=== PATIENT | female | born 1930 | race Caucasian/White ===

== ENCOUNTER 2017-03-15 19:23 | Emergency (ER) | payer MEDICARE ==
--- NOTE | 2017-03-15 19:44 | Emergency Department Record ---
History of Present Illness - General Chief complaint: Rash Stated complaint: REDNESS ON BOTH LEGS Time Seen by Provider: 03/15/17 19:41 Source: Patient, Family Mode of Arrival: Ambulatory Limitations: No limitations - History of Present Illness Initial comments: 86 yo female presents with redness, scabs, swelling to the bilateral lower legs. No fevers. She has some small abrasions from gardening that have become red with some clear drainage. No fevers. No NVD. No chills. She has mild bilateral swelling as well. No shortness of breath. NO pain. No other recent illness. PCP Jose HIDALGO complaint: Rash Hx Tetanus Toxoid Vaccination: Yes Year of Tetanus Vaccination: 2006 Location: LLE, RLE Severity: Mild Quality: Other (no pain) Worsens with: None Context: Other (initial scratches) Associated symptoms: Denies other symptoms Treatments Prior to Arrival: None - Related Data Home Medications Medication Instructions Recorded Confirmed Last Taken Amlodipine Besylate 2.5 mg PO DAILY 09/03/15 03/15/17 03/15/17 Carvedilol [Coreg] 25 mg PO BID 09/03/15 03/15/17 03/15/17 Escitalopram Oxalate [Lexapro] 10 mg PO DAILY 09/03/15 03/15/17 03/15/17 Furosemide [Lasix] 20 mg PO BID 09/03/15 03/15/17 03/15/17 Quinapril HCl 40 mg PO DAILY 09/03/15 03/15/17 03/15/17 Calcium Carbonate/Vitamin D3 1 each PO DAILY 12/24/15 03/15/17 03/15/17 [Caltrate 600 + D Tablet] Multivitamin [Multi-Vitamin Daily] 1 each PO DAILY 12/24/15 03/15/17 12/24/15 Previous Rx's Medication Instructions Recorded Clindamycin HCl 300 mg PO QID #28 capsule 03/15/17 Mupirocin Calcium [Bactroban] 15 gm TP BID #1 cream..g. 03/15/17 Potassium Chloride [Klor-Con] 10 meq PO DAILY #4 tablet.sa 03/15/17 Allergies Allergy/AdvReac Type Severity Reaction Status Date / Time No Known Drug Allergies Allergy Unknown Verified 03/15/17 19:34 [NO KNOWN DRUG ALLERGIES] Review of Systems Constitutional: Denies: Chills, Fever, Malaise, Weakness Eyes: Denies: Eye discharge ENT: Denies: Congestion, Throat pain Respiratory: Denies: Cough Cardiovascular: Denies: Chest pain, Syncope Endocrine: Denies: Fatigue Gastrointestinal: Denies: Abdominal pain, Diarrhea, Nausea, Vomiting Genitourinary: Denies: Dysuria, Urgency Musculoskeletal: Denies: Arthralgia, Back pain, Myalgia Skin: Reports: As per HPI, Change in color Neurological: Denies: Confusion, Headache Psychiatric: Denies: Anxiety Hematological/Lymphatic: Denies: Blood Clots, Easy bleeding, Easy bruising, Swollen glands Past Medical History - SOCIAL HISTORY Smoking Status: Never smoker - RESPIRATORY Hx Respiratory Disorders: No - CARDIOVASCULAR Hx Cardio Disorders: Yes Hx CHF: Yes - NEURO Hx Neuro Disorders: No - GI Hx GI Disorders: Yes Comment:: C-Diff - Hx Genitourinary Disorders: No - ENDOCRINE Hx Endocrine Disorders: No - MUSCULOSKELETAL Hx Musculoskeletal Disorders: No - PSYCH Hx Psych Problems: No - HEMATOLOGY/ONCOLOGY Hx Hematology/Oncology Disorders: No Family Medical History Hx Cancer: Mother Hx Heart Disease: Father, Mother Physical Exam - General General Appearance: Alert, Oriented x3, Cooperative, No acute distress Limitations: No limitations - Head Head exam: Normal inspection - Eye Eye exam: Normal appearance - ENT ENT exam: Normal exam Ear exam: Normal external inspection Nasal Exam: Normal inspection Mouth exam: Normal external inspection - Neck Neck exam: Normal inspection - Respiratory Respiratory exam: Normal lung sounds bilaterally. negative: Respiratory distress - Cardiovascular Cardiovascular Exam: Regular rate, Normal rhythm, Normal heart sounds - Rectal Rectal exam: Deferred - exam: Deferred - Extremities Extremities exam: Full ROM, Normal capillary refill, Pedal edema (mild +1), Other (few scattered scabs bilaterally, minimal clear draiange, mild erythema bilateral shins). negative: Normal inspection, Calf tenderness, Joint swelling , Tenderness - Back Back exam: Reports: Normal inspection - Neurological Neurological exam: Alert, Normal gait, Oriented X3 - Psychiatric Psychiatric exam: Normal affect, Normal mood - Skin Skin exam: Dry, Intact, Normal color, Warm Course Vital Signs 03/15/17 19:35 Temperature 97.7 F Pulse Rate [ 67 Pulse Ox Probe] Respiratory 18 Rate Blood Pressure 171/84 [Left Arm] Pulse Ox 95 Disposition Disposition: Discharge Clinical Impression: Cellulitis Qualifiers: Site of cellulitis: extremity Site of cellulitis of extremity: lower extremity Laterality: unspecified laterality Qualified Code(s): L03.119 - Cellulitis of unspecified part of limb Disposition: Home, Self-Care Condition: (1) Good Instructions: Cellulitis (ED) Additional Instructions: Elevate the legs Wear your support hose Take your Lasix once every twelve hours (twice daily) Saturday and Saturday Clindamycin 4 times daily Apply the ointment twice daily to the scabbed areas Prescriptions: Clindamycin HCl 300 mg PO QID #28 capsule Mupirocin Calcium [Bactroban] 15 gm TP BID #1 cream..g. Potassium Chloride [Klor-Con] 10 meq PO DAILY #4 tablet.sa Forms: Patient Portal Access Time of Disposition: 19:57 Quality - Quality Measures Quality Measures: N/A - Blood Pressure Screening Does Patient Have Any of the Following: No Blood Pressure Classification: Pre-Hypertensive BP Reading Systolic Measurement: 171 Diastolic Measurement: 84 Screening for High Blood Pressure: < Pre-Hypertensive BP, F/U Documented > [ G8950] Pre-Hypertensive Follow-up Interventions: Referral to alternative/primary care provider.
[2017-03-15] MEDS ORDERED: CLINDAMYCIN 150 MG CAP PO ONE (19:53)
[2017-03-15] MEDS ORDERED: MUPIROCIN OINT 22 GM TUBE TOP SCH (20:00)
== END 2017-03-15 20:26 | disposition home or self-care (01) ==
LOC: ER 19:23
DX: L03.116 Cellulitis of left lower limb (principal); L03.115 Cellulitis of right lower limb
CPT/HCPCS: 99282

== ENCOUNTER 2018-03-18 15:49 | Emergency (ER) | payer MEDICARE ==
[2018-03-18] MEDS ORDERED: RABIES IMMUNE GLOBULIN/PF 150 UNIT/ML, 10ML VIAL IM ONE (16:11)
[2018-03-18] MEDS ORDERED: RABIES VACCINE 2.5 IU VIAL IM ONE (16:11)
--- NOTE | 2018-03-18 16:22 | Emergency Department Record ---
History of Present Illness - General Chief Complaint: Animal Bite Stated Complaint: POSSIBLE BAT BITE Time Seen by Provider: 03/18/18 16:02 Source: Patient Mode of Arrival: Ambulatory Limitations: No limitations - History of Present Illness Initial Comments: Pt with recetn bat infestation of her home. Multiple bats in the living areas of her home over the past two weeks. Has had pest control to the home to resolve the issue. Had contact with the bats while "hitting them off the curtains with a broom". Her cat also killed one and the patient rolled it in a rug to take out of the house. No direct skin to skin contact know by patient. No symptoms. Health department instructed the patient to have the rabies series. Complaint: Possible animal exposure -: Unknown Animal: Bat Description: Wild animal Mechanism: None known Context: Other Associated Symptoms: None - Related Data Allergies Allergy/AdvReac Type Severity Reaction Status Date / Time No Known Drug Allergies Allergy Unknown Unverified 09/24/17 16:59 [NO KNOWN DRUG ALLERGIES] Travel Screening - Travel/Exposure Within Last 30 Days Have you traveled within the last 30 days?: No Review of Systems Constitutional: Denies: Chills, Fever, Weakness Eyes: Denies: Eye pain, Photophobia, Vision change ENT: Denies: Congestion Respiratory: Denies: Cough, Dyspnea Cardiovascular: Denies: Arrhythmia, Chest pain Endocrine: Denies: Fatigue Gastrointestinal: Denies: Abdominal pain Musculoskeletal: Denies: Arthralgia Skin: Denies: Rash Neurological: Denies: Confusion, Headache, Seizure, Tingling Psychiatric: Denies: Anxiety Hematological/Lymphatic: Denies: Anemia Past Medical History - SOCIAL HISTORY Smoking Status: Never smoker - RESPIRATORY Hx Respiratory Disorders: No - CARDIOVASCULAR Hx Cardio Disorders: Yes Hx CHF: Yes - NEURO Hx Neuro Disorders: No - GI Hx GI Disorders: Yes Comment:: C-Diff - Hx Genitourinary Disorders: No - ENDOCRINE Hx Endocrine Disorders: No - MUSCULOSKELETAL Hx Musculoskeletal Disorders: No - PSYCH Hx Psych Problems: No Hx Anxiety: Yes Hx Depression: Yes - HEMATOLOGY/ONCOLOGY Hx Hematology/Oncology Disorders: No Hx Anemia: Yes Family Medical History Any Significant Family History?: Yes Hx Cancer: Mother Hx Heart Disease: Father, Mother Physical Exam - General General Appearance: Alert, Oriented x3, Cooperative, No acute distress - Head Head exam: Atraumatic - Eye Eye exam: Normal appearance, PERRL - ENT ENT exam: Normal exam, Mucous membranes moist, Normal external ear exam, Normal orophraynx - Neck Neck exam: Normal inspection, Full ROM - Respiratory Respiratory exam: Normal lung sounds bilaterally. negative: Rhonchi, Wheezes - Cardiovascular Cardiovascular Exam: Regular rate, Normal rhythm, Normal heart sounds - GI/Abdominal GI/Abdominal exam: Soft, Normal bowel sounds. negative: Tenderness - Extremities Extremities exam: Normal inspection, Full ROM - Back Back exam: Reports: Normal inspection. Denies: Paraspinal tenderness - Neurological Neurological exam: Alert, Normal gait, Oriented X3 - Psychiatric Psychiatric exam: Normal affect - Skin Skin exam: Normal color. negative: Rash Course Vital Signs 03/18/18 03/18/18 16:01 16:02 Temperature 97.9 F Pulse Rate [ 70 Pulse Ox Probe] Respiratory 20 Rate Blood Pressure 174/84 [Left Arm] Pulse Ox 95 - Reevaluation(s) Reevaluation #1: 03/18/18 16:23 Pt given Rabies injections for Day 0 in ED today. Series to continue here on Day 3, 7, 14. Pt aware. Disposition Disposition: Discharge Clinical Impression: Exposure to bat without known bite Disposition: Home, Self-Care Condition: (1) Good Additional Instructions: Rabies injection series here in the ER on Days: Day #3: 03-21-18 Day #7: 03-25-18 Day #14: 04-01-18 Return at any time if issues or concerns. Time of Disposition: 16:27 Quality - Quality Measures Quality Measures: N/A - Blood Pressure Screening Does Patient Have Any of the Following: No Blood Pressure Classification: Pre-Hypertensive BP Reading Systolic Measurement: 174 Diastolic Measurement: 84 Screening for High Blood Pressure: < Pre-Hypertensive BP, F/U Documented > [ G8950] Pre-Hypertensive Follow-up Interventions: Follow-up with rescreen every year.
== END 2018-03-18 16:45 | disposition home or self-care (01) ==
LOC: ER 15:49
DX: Z20.3 Contact with and (suspected) exposure to rabies (principal); I50.9 Heart failure, unspecified
CPT/HCPCS: 90375; 90675; 96372; 99282; 99283

== ENCOUNTER 2018-03-21 10:34 | Emergency (ER) | payer MEDICARE ==
[2018-03-21] MEDS ORDERED: RABIES VACCINE 2.5 IU VIAL IM ONE (10:55)
--- NOTE | 2018-03-21 11:01 | Emergency Department Record ---
History of Present Illness - General Chief Complaint: Recheck - Other Stated Complaint: RABIE SHOT Time Seen by Provider: 03/21/18 10:49 Source: Patient Mode of arrival: Ambulatory Limitations: No limitations - History of Present Illness Initial Comments: pt here for 2nd shot after bat exposure. bats have been cleared from the house Complaint: Other Onset/Timin -: Week(s) Initial Visit For: Other Returns Today for: Rabies shot Symptoms Since Prior Visit: No new symptoms Associated Symptoms: None - Related Data Allergies Allergy/AdvReac Type Severity Reaction Status Date / Time No Known Drug Allergies Allergy Unknown Unverified 09/24/17 16:59 [NO KNOWN DRUG ALLERGIES] Travel Screening - Travel/Exposure Within Last 30 Days Have you traveled within the last 30 days?: No Review of Systems Reviewed: No additional complaints except as noted below Constitutional: Reports: As per HPI. Denies: Chills, Fever, Malaise, Night sweats, Weakness, Weight change Eyes: Reports: As per HPI. Denies: Eye discharge, Eye pain, Photophobia, Vision change ENT: Reports: As per HPI. Denies: Congestion, Dental pain, Ear pain, Epistaxis , Hearing loss, Throat pain Respiratory: Reports: As per HPI. Denies: Cough, Dyspnea, Hemoptysis, Stridor, Wheezes Cardiovascular: Reports: As per HPI. Denies: Arrhythmia, Chest pain, Dyspnea on exertion, Edema, Murmurs, Orthopnea, Palpitations, Paroxysmal nocturnal dyspnea, Rheumatic Fever, Syncope Endocrine: Reports: As per HPI. Denies: Fatigue, Heat or cold intolerance, Polydipsia, Polyuria Gastrointestinal: Reports: As per HPI. Denies: Abdominal pain, Constipation, Diarrhea, Hematemesis, Hematochezia, Melena, Nausea, Vomiting Genitourinary: Reports: As per HPI. Denies: Abnormal menses, Discharge, Dyspareunia, Dysuria, Frequency, Hematuria, Incontinence, Retention, Urgency Musculoskeletal: Reports: As per HPI. Denies: Arthralgia, Back pain, Gout, Joint swelling, Myalgia, Neck pain Skin: Reports: As per HPI. Denies: Bruising, Change in color, Change in hair/ nails, Lesions, Pruritus, Rash Neurological: Reports: As per HPI. Denies: Abnormal gait, Confusion, Headache, Numbness, Paresthesias, Seizure, Tingling, Tremors, Vertigo, Weakness Psychiatric: Reports: As per HPI. Denies: Anxiety, Auditory hallucinations, Depression, Homicidal thoughts, Suicidal thoughts, Visual hallucinations Hematological/Lymphatic: Reports: As per HPI. Denies: Anemia, Blood Clots, Easy bleeding, Easy bruising, Swollen glands Past Medical History - SOCIAL HISTORY Smoking Status: Never smoker - RESPIRATORY Hx Respiratory Disorders: No - CARDIOVASCULAR Hx Cardio Disorders: Yes Hx CHF: Yes - NEURO Hx Neuro Disorders: No - GI Hx GI Disorders: Yes Comment:: C-Diff - Hx Genitourinary Disorders: No - ENDOCRINE Hx Endocrine Disorders: No - MUSCULOSKELETAL Hx Musculoskeletal Disorders: No - PSYCH Hx Psych Problems: No Hx Anxiety: Yes Hx Depression: Yes - HEMATOLOGY/ONCOLOGY Hx Hematology/Oncology Disorders: No Hx Anemia: Yes Family Medical History Any Significant Family History?: Yes Hx Cancer: Mother Hx Heart Disease: Father, Mother Physical Exam - General General Appearance: Alert, Oriented x3, Cooperative, No acute distress - Head Head exam: Normal inspection - Eye Eye exam: Normal appearance, PERRL Pupils: Normal accommodation - ENT ENT exam: Normal exam, Mucous membranes moist, Normal external ear exam, Normal orophraynx Ear exam: Normal external inspection. negative: External canal tenderness Nasal Exam: Normal inspection. negative: Discharge, Sinus tenderness Mouth exam: Normal external inspection, Tongue normal Teeth exam: Normal inspection. negative: Dental caries Throat exam: Normal inspection. negative: Tonsillar erythema, Tonsillar exudate - Neck Neck exam: Normal inspection, Full ROM. negative: Tenderness - Respiratory Respiratory exam: negative: Respiratory distress - GI/Abdominal GI/Abdominal exam: Soft, Normal bowel sounds. negative: Tenderness - Rectal Rectal exam: Deferred - exam: Deferred - Extremities Extremities exam: Normal inspection, Full ROM, Normal capillary refill. negative: Tenderness - Back Back exam: Reports: Normal inspection, Full ROM. Denies: Muscle spasm, Rash noted, Tenderness - Neurological Neurological exam: Alert, CN II-XII intact, Normal gait, Oriented X3 - Psychiatric Psychiatric exam: Normal affect, Normal mood - Skin Skin exam: Dry, Intact, Normal color, Warm Course Vital Signs 03/21/18 10:39 Temperature 97.8 F Pulse Rate 83 Respiratory 17 Rate Blood Pressure 188/95 Pulse Ox 95 Disposition Disposition: Discharge Clinical Impression: Rabies, need for prophylactic vaccination against Disposition: Home, Self-Care Condition: (1) Good Instructions: Rabies Vaccine (By injection), Rabies Vaccine (ED) Additional Instructions: return for remaining shots. return sooner if worse. Quality - Quality Measures Quality Measures: N/A - Blood Pressure Screening Does Patient Have Any of the Following: Active Dx of HTN Blood Pressure Classification: Hypertensive Reading Systolic Measurement: 188 Diastolic Measurement: 95 Screening for High Blood Pressure: Patient Exclusion, Hx of HTN [G9744]
== END 2018-03-21 11:38 | disposition home or self-care (01) ==
LOC: ER 10:34
DX: Z20.3 Contact with and (suspected) exposure to rabies (principal)
CPT/HCPCS: 90675; 96372; 99282

== ENCOUNTER 2018-03-25 12:35 | Emergency (ER) | payer MEDICARE ==
[2018-03-25] MEDS ORDERED: RABIES VACCINE 2.5 IU VIAL IM ONE (12:38)
--- NOTE | 2018-03-25 12:42 | Emergency Department Record ---
History of Present Illness - General Stated Complaint: RABIES SHOT Time Seen by Provider: 03/25/18 12:37 Source: Patient Mode of arrival: Ambulatory Limitations: No limitations - History of Present Illness Initial Comments: 87 yo female presents for her 3 of 4 rabies vaccines. No complaints after the previous vaccinations. She was exposed to bats. Complaint: Wound re-check, Other (Rabies vaccine) -: Week(s) Initial Visit For: Other (Bat exposure) Returns Today for: Wound recheck Symptoms Since Prior Visit: Other Associated Symptoms: Other Treatments Prior to Arrival: Other - Related Data Allergies Allergy/AdvReac Type Severity Reaction Status Date / Time No Known Drug Allergies Allergy Unknown Unverified 09/24/17 16:59 [NO KNOWN DRUG ALLERGIES] Review of Systems Constitutional: Denies: Chills, Fever, Malaise, Weakness Eyes: Denies: Vision change ENT: Denies: Congestion, Throat pain Respiratory: Denies: Cough Cardiovascular: Denies: Syncope Endocrine: Denies: Fatigue Gastrointestinal: Denies: Diarrhea, Nausea, Vomiting Genitourinary: Denies: Dysuria Musculoskeletal: Denies: Arthralgia, Joint swelling, Myalgia Skin: Reports: Rash (chronic psoriasis). Denies: Bruising, Change in color Neurological: Denies: Headache Psychiatric: Denies: Anxiety Hematological/Lymphatic: Denies: Easy bleeding, Easy bruising, Swollen glands Past Medical History - SOCIAL HISTORY Smoking Status: Never smoker - RESPIRATORY Hx Respiratory Disorders: No - CARDIOVASCULAR Hx Cardio Disorders: Yes Hx CHF: Yes - NEURO Hx Neuro Disorders: No - GI Hx GI Disorders: Yes Comment:: C-Diff - Hx Genitourinary Disorders: No - ENDOCRINE Hx Endocrine Disorders: No - MUSCULOSKELETAL Hx Musculoskeletal Disorders: No - PSYCH Hx Psych Problems: No Hx Anxiety: Yes Hx Depression: Yes - HEMATOLOGY/ONCOLOGY Hx Hematology/Oncology Disorders: No Hx Anemia: Yes Family Medical History Hx Cancer: Mother Hx Heart Disease: Father, Mother Physical Exam - General General Appearance: Alert, Oriented x3, Cooperative, No acute distress Limitations: No limitations - Head Head exam: Normal inspection - Eye Eye exam: Normal appearance - ENT ENT exam: Normal exam Nasal Exam: Normal inspection Mouth exam: Normal external inspection - Neck Neck exam: Normal inspection - Neurological Neurological exam: Alert, Oriented X3 - Psychiatric Psychiatric exam: Normal affect, Normal mood - Skin Skin exam: Dry, Normal color, Rash (psoriasis), Warm Course - Reevaluation(s) Reevaluation #1: 03/25/18 12:41 EMR reviewed This is the third of 4 vaccines Disposition Disposition: Discharge Clinical Impression: Rabies, need for prophylactic vaccination against Disposition: Home, Self-Care Condition: (1) Good Instructions: Rabies Vaccine (By injection) Additional Instructions: Return as scheduled for the final vaccination for rabies Forms: Patient Portal Access Time of Disposition: 12:42 Quality - Quality Measures Quality Measures: N/A - Blood Pressure Screening Does Patient Have Any of the Following: Active Dx of HTN Blood Pressure Classification: Hypertensive Reading Systolic Measurement: 150 Diastolic Measurement: 67 Screening for High Blood Pressure: Patient Exclusion, Hx of HTN [G9744]
== END 2018-03-25 13:00 | disposition home or self-care (01) ==
LOC: ER 12:35
DX: Z20.3 Contact with and (suspected) exposure to rabies (principal)
CPT/HCPCS: 90675; 96372; 99282

== ENCOUNTER 2018-04-01 12:33 | Emergency (ER) | payer MEDICARE ==
[2018-04-01] MEDS ORDERED: RABIES VACCINE 2.5 IU VIAL IM ONE (12:47)
--- NOTE | 2018-04-01 12:56 | Emergency Department Record ---
History of Present Illness - General Chief Complaint: Wound, check Stated Complaint: RABIES SHOT Time Seen by Provider: 04/01/18 12:53 Source: Patient Mode of arrival: Ambulatory Limitations: No limitations - History of Present Illness Initial Comments: Here for 4th shot in Rabies series. No complaints. Onset/Timin -: Days(s) Initial Visit For: Animal bite Returns Today for: Rabies shot, Wound recheck Symptoms Since Prior Visit: No new symptoms Associated Symptoms: None - Related Data Allergies Allergy/AdvReac Type Severity Reaction Status Date / Time No Known Drug Allergies Allergy Unknown Verified 04/01/18 12:53 [NO KNOWN DRUG ALLERGIES] Travel Screening - Travel/Exposure Within Last 30 Days Have you traveled within the last 30 days?: No - Travel/Exposure Within Last Year Have you traveled outside the [place] in the last year?: No - Additonal Travel Details Have you been exposed to anyone with a communicable illness?: No - Travel Symptoms Symptom Screening: None Review of Systems Constitutional: Denies: Fever, Malaise Eyes: Denies: Photophobia ENT: Denies: Congestion Respiratory: Denies: Cough Cardiovascular: Denies: Arrhythmia, Chest pain Endocrine: Denies: Fatigue Gastrointestinal: Denies: Abdominal pain Past Medical History - SOCIAL HISTORY Smoking Status: Never smoker Alcohol Use: None Drug Use: None - RESPIRATORY Hx Respiratory Disorders: No - CARDIOVASCULAR Hx Cardio Disorders: Yes Hx CHF: Yes - NEURO Hx Neuro Disorders: No - GI Hx GI Disorders: Yes Comment:: C-Diff - Hx Genitourinary Disorders: No - ENDOCRINE Hx Endocrine Disorders: No - MUSCULOSKELETAL Hx Musculoskeletal Disorders: No - PSYCH Hx Psych Problems: No Hx Anxiety: Yes Hx Depression: Yes - HEMATOLOGY/ONCOLOGY Hx Hematology/Oncology Disorders: No Hx Anemia: Yes Family Medical History Any Significant Family History?: Yes Hx Cancer: Mother Hx Heart Disease: Father, Mother Physical Exam - General General Appearance: Alert, Oriented x3, Cooperative, No acute distress - Head Head exam: Atraumatic - Eye Eye exam: PERRL - ENT ENT exam: Normal exam - Neck Neck exam: Normal inspection - Respiratory Respiratory exam: Normal lung sounds bilaterally - Cardiovascular Cardiovascular Exam: Regular rate, Normal rhythm - GI/Abdominal GI/Abdominal exam: Soft, Normal bowel sounds. negative: Tenderness - Neurological Neurological exam: Alert, Normal gait, Oriented X3 - Psychiatric Psychiatric exam: Normal affect - Skin Skin exam: Normal color Course Vital Signs 04/01/18 12:49 Temperature 98.0 F Pulse Rate [ 76 Pulse Ox Probe] Respiratory 18 Rate Blood Pressure 159/85 [Left Arm] Pulse Ox 95 Disposition Disposition: Discharge Clinical Impression: Rabies, need for prophylactic vaccination against Condition: (1) Good Additional Instructions: Rabies series completed. Family doctor as needed. Quality - Quality Measures Quality Measures: N/A - Blood Pressure Screening Does Patient Have Any of the Following: No Blood Pressure Classification: Pre-Hypertensive BP Reading Systolic Measurement: 159 Diastolic Measurement: 85 Screening for High Blood Pressure: < Pre-Hypertensive BP, F/U Documented > [ G8950] Pre-Hypertensive Follow-up Interventions: Follow-up with rescreen every year.
== END 2018-04-01 13:15 | disposition home or self-care (01) ==
LOC: ER 12:33
DX: Z20.3 Contact with and (suspected) exposure to rabies (principal)
CPT/HCPCS: 90675; 96372; 99282